=== PATIENT | female | born 1950 | race Caucasian/White ===

== ENCOUNTER → 2017-08-28 | Outpatient (CLI) | payer MEDICARE, BC | LOC: OD 18:02 | DX: N89.9 Noninflammatory disorder of vagina, unspecified (principal); Z12.12 Encounter for screening for malignant neoplasm of rectum | CPT/HCPCS: 88142 ==

== ENCOUNTER 2017-09-13 16:43 | Emergency (ER) | payer MEDICARE, BC ==
[2017-09-13] MEDS ORDERED: OXYCODONE-ACETAMINOPHEN 5-325 MG TABLET PO ONE (18:32)
--- NOTE | 2017-09-13 18:51 | RADIOLOGY REPORT (SQ) ---
EXAM DESCRIPTION: WRIST LEFT 3 VIEWS COMPLETED DATE/TIME: 09/13/2017 6:40 pm REASON FOR STUDY: fall left wrist deformity COMPARISON: None. NUMBER OF VIEWS: Three views. TECHNIQUE: AP, lateral, and oblique radiographic images acquired of the left wrist. LIMITATIONS: None. FINDINGS: MINERALIZATION: Normal. BONES: Comminuted fracture of the distal radius with dorsal angulation. SOFT TISSUES: No soft tissue swelling. No foreign body. OTHER: No other significant finding. IMPRESSION: COMMINUTED FRACTURE OF THE DISTAL RADIUS. TECHNICAL DOCUMENTATION: JOB ID: [id number] [employer]- All Rights Reserved
[2017-09-13] MEDS ORDERED: LIDOCAINE 2% INJ-PF (20 MG/ML) 10 ML AMPUL INFIL ONE (19:22)
[2017-09-13] MEDS ORDERED: LIDOCAINE 1% INJ-PF (10 MG/ML) 30 ML SDV ONE (20:29)
--- NOTE | 2017-09-13 21:38 | ER Document Report ---
ED Extremity Problem, Upper - General Chief Complaint: Arm Injury Stated Complaint: LEFT WRIST INJURY Time Seen by Provider: 09/13/17 18:31 Mode of Arrival: Ambulatory Information source: Patient Notes: Patient is a 67-year-old female comes emergency room after having a trip and fall at a local gym. She went to picker tender her granddaughter and was walking on the soft spongy mats as she was going across the floor she does not know whether she tripped or stepped off the mat and missed the start of the next mat but she fell straight forward on an outstretched left hand and is in here today because she has deformity to the left wrist. She denies any other injuries at this time. TRAVEL OUTSIDE OF THE [place] IN LAST 30 DAYS: No - HPI Patient complains to provider of: Injury, Pain, Swelling, Wrist Onset: Just prior to arrival Recent injury: Yes Where: Other - gym Quality of pain: Achy, Sharp, Throbbing Severity of pain: Still present Pain Level: 4 Context: Fall Associated symptoms: Nausea Exacerbated by: Movement Relieved by: Rest, Positioning Similar symptoms previously: No Recently seen / treated by doctor: No - Related Data Allergies/Adverse Reactions: Sulfa (Sulfonamide Antibiotics) Allergy (Verified 09/13/17 16:46) Past Medical History - General Information source: Patient, Relative - Social History Smoking Status: Never Smoker Chew tobacco use (# tins/day): No Frequency of alcohol use: Rare Drug Abuse: None Lives with: Spouse/Significant other Family History: Reviewed & Not Pertinent Patient has suicidal ideation: No Patient has homicidal ideation: No - Past Medical History Cardiac Medical History: Reports: Hx Hypertension Renal/ Medical History: Denies: Hx Peritoneal Dialysis Past Surgical History: Reports: Hx Appendectomy, Hx Cholecystectomy, Hx Tonsillectomy. Denies: Hx Orthopedic Surgery - Immunizations Hx Diphtheria, Pertussis, Tetanus Vaccination: Yes Review of Systems - Review of Systems Constitutional: No symptoms reported EENT: No symptoms reported Cardiovascular: No symptoms reported Respiratory: No symptoms reported Gastrointestinal: No symptoms reported Genitourinary: No symptoms reported Female Genitourinary: No symptoms reported Musculoskeletal: Joint pain, Joint swelling Skin: No symptoms reported Hematologic/Lymphatic: No symptoms reported Neurological/Psychological: No symptoms reported -: Yes All other systems reviewed and negative Physical Exam - Vital signs Vitals: Temp Pulse Resp BP Pulse Ox 97.8 F 59 L 16 145/70 H 100 09/13/17 16:53 09/13/17 16:53 09/13/17 16:53 09/13/17 16:53 09/13/17 16:53 Interpretation: Hypertensive - General General appearance: Alert, Other - Uncomfortable - Respiratory Respiratory status: No respiratory distress Chest status: Nontender Breath sounds: Normal. No: Decreased air movement, Nonproductive cough, Productive cough, Rales, Rhonchi, Stridor, Wheezing, Other - Cardiovascular Rhythm: Regular, Bradycardia Heart sounds: Normal auscultation Murmur: No - Extremities General upper extremity: Tender, Edema, Normal color. No: Normal inspection, Nontender, Normal ROM, Normal strength, Normal temperature, Other General lower extremity: Normal inspection, Normal ROM Wrist: Tender, Deformity, Ecchymosis, Limited ROM, Other - Examination of the left wrist shows a deformity which appears to be displaced dorsally. There is good pulses in both the ulna and radial pulses and good cap refill in the nail beds of the left hand. 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 No sign of compartment syndrome. - Neurological Neuro grossly intact: Yes Cognition: Normal Orientation: AAOx4 [place] Coma Scale Eye Opening: Spontaneous [place] Coma Scale Verbal: Oriented [place] Coma Scale Motor: Obeys Commands [place] Coma Scale Total: 15 Speech: Normal Course - Vital Signs Vital signs: Temp Pulse Resp BP Pulse Ox 97.5 F 61 16 132/74 H 96 09/13/17 21:46 09/13/17 21:46 09/13/17 16:53 09/13/17 21:46 09/13/17 21:46 - Diagnostic Test Radiology reviewed: Reports reviewed - Comminuted fx of wrist. Post reduction is improved position - Transfer of Care Notes: 09/17/17 12:[address] Cook look at Xrays and he felt that patient might benefit from a reduction. He advised a hematoma block. Procedures - Immobilization Left Posterior Wrist Time completed: 21:34 Pre-Proc Neuro Vasc Exam: Normal Immobilizer type: Long arm posterior, Short Arm Posterior Performed by: PCT Post-Proc Neuro Vasc Exam: Normal Alignment checked and good: Yes - Joint Reduction/Fracture Care Left Wrist Consent obtained: Yes Conscious sedation: No Pre-procedure NV exam: Yes Fracture: Closed Post-procedure NV exam: Yes Reduction attempts: 1 Complications: No Notes: 09/17/17 12:13 Patient had a wrist fracture and I used a hematoma block to numb the area. I used 10ml of 1% lidocaine without epi. I went in dorsally drawing back on the plunger while using an 18 gauge needle until I got a flash of blood. I then pushed in the full 10mls and then withdrew. I waited about 5 minutes then with the aid of another APC I manipulated the disgtal wrist while the other APC pulled traction. I felt several bones move and once the deformity disappeared we applied a splint of orthoglass and did post reduction Xray which showed improved position. I for got to add that I did use sterile technique to clean the area using both alcohol and betadine before inserting the needle for the hematoma block. Discharge - Discharge Clinical Impression: Fracture of left wrist Qualifiers: Encounter type: initial encounter Fracture type: closed Qualified Code(s): S62.102A - Fracture of unspecified carpal bone, left wrist, initial encounter for closed fracture Condition: Good Disposition: HOME, SELF-CARE Instructions: Radial Head Fracture ([facility]) Additional Instructions: Home and rest. Medications prescribed. Leave the splint on until you seen the orthopedist. I have given you the name the orthopedic group referral and information aide today and you may contact her office tomorrow to see if they can accommodate you. You may ice down through this splint by placing in a plastic bag over top of it and ice bag on top and below. Use the sling at all times. Should you have any problems or concerns return to ER for recheck. Primarily you looking for circulation in the distal tips of your fingernails if you pinch the nailbed it turns white when you release it it turns red that is good blood flow if you turn loose and it takes a while to turn red you need to loosen up the splint. Prescriptions: Oxycodone HCl/Acetaminophen [Percocet 10-325 Mg Tablet] 1 each PO Q6 #20 tablet Referrals: PRESTON SCHNEIDER MD [Primary Care Provider] - Follow up as needed ZAIRA MCDUFFIE MD [ACTIVE STAFF] - Follow up as needed
[2017-09-13 21:47] VITALS: BP 132/74
--- NOTE | 2017-09-13 22:17 | RADIOLOGY REPORT (SQ) ---
EXAM DESCRIPTION: WRIST LEFT 2 VIEWS COMPLETED DATE/TIME: 09/13/2017 9:06 pm REASON FOR STUDY: post reduction COMPARISON: 09/13/2017. NUMBER OF VIEWS: Two views. TECHNIQUE: AP and lateral radiographic images acquired of the left wrist. LIMITATIONS: None. FINDINGS: MINERALIZATION: Normal. BONES: Improved position of the fracture of the distal radius following closed reduction. Cast mater ial present. SOFT TISSUES: No soft tissue swelling. No foreign body. OTHER: No other significant finding. IMPRESSION: IMPROVED POSITION FOLLOWING CLOSED REDUCTION. TECHNICAL DOCUMENTATION: JOB ID: [id number] [employer]- All Rights Reserved
== END 2017-09-13 21:45 | disposition home or self-care (01) ==
LOC: ER 16:43
PROC: 0PSNXZZ Reposition Left Carpal, External Approach (ICD-10-PCS; principal; 2017-09-13)
DX: S62.102A Fracture of unspecified carpal bone, left wrist, initial encounter for closed fracture (principal); M25.531 Pain in right wrist; W01.0XXA Fall on same level from slipping, tripping and stumbling without subsequent striking against object, initial encounter
CPT/HCPCS: 99283; 73100; 73110; 25635; A9270

== ENCOUNTER 2018-08-15 05:20 | Day surgery (SDC) | payer MEDICARE, BC ==
[2018-08-08 11:49] LABS: HEMOGLOBIN 14.1 g/dL (12.0-15.5); MEAN CORPUSCULAR HEMOGLOBIN 32.1 pg (27.0-33.4); MEAN CORPUSCULAR HGB CONC 34.5 g/dL (32.0-36.0); MEAN CORPUSCULAR VOLUME 93 fl (80-97); PLATELET COUNT 234 10^3/uL (150-450); RED CELL DISTRIBUTION WIDTH 13.3 % (11.5-14.0); WHITE BLOOD COUNT 5.6 10^3/uL (4.0-10.5)
[2018-08-08 11:59] LABS: APPEARANCE,URINE SLIGHTLY-CLOUDY; BILIRUBIN,URINE NEGATIVE (NEGATIVE); COLOR,URINE YELLOW; GLUCOSE, URINE NEGATIVE (NEGATIVE); KETONES,URINE NEGATIVE (NEGATIVE); LEUKOCYTE ESTERASE,URINE MODERATE (NEGATIVE); NITRITE,URINE NEGATIVE (NEGATIVE); PROTEIN,URINE NEGATIVE (NEGATIVE); URINE SPECIFIC GRAVITY 1.024; UROBILINOGEN,URINE NEGATIVE mg/dL (<2.0)
[2018-08-08 12:12] LABS: ANION GAP 14 (5-19); BLOOD UREA NITROGEN 15 mg/dL (7-20); CALCIUM 10.1 mg/dL (8.4-10.2); CARBON DIOXIDE 26 mmol/L (22-30); CHLORIDE 105 mmol/L (98-107); GLUCOSE 97 mg/dL (75-110); POTASSIUM 4.3 mmol/L (3.6-5.0); SODIUM 144.7 mmol/L (137-145)
--- NOTE | 2018-08-08 13:05 | RADIOLOGY REPORT (SQ) ---
EXAM DESCRIPTION: CHEST PA/LATERAL COMPLETED DATE/TIME: 08/08/2018 12:23 pm REASON FOR STUDY: PRE-OP COMPARISON: August 2014 EXAM PARAMETERS: NUMBER OF VIEWS: two views TECHNIQUE: Digital Frontal and Lateral radiographic views of the chest acquired. RADIATION DOSE: NA LIMITATIONS: none FINDINGS: LUNGS AND PLEURA: No opacities, masses or pneumothorax. No pleural effusion. MEDIASTINUM AND HILAR STRUCTURES: No masses or contour abnormalities. HEART AND VASCULAR STRUCTURES: Heart normal size. No evidence for failure. BONES: No acute findings. HARDWARE: None in the chest. OTHER: No other significant finding. IMPRESSION: NO SIGNIFICANT RADIOGRAPHIC FINDING IN THE CHEST. TECHNICAL DOCUMENTATION: JOB ID: [id number] [employer]- All Rights Reserved Reading location - IP/workstation name: [email or web address]
--- NOTE | 2018-08-08 13:23 | EKG REPORT ---
SEVERITY:- ABNORMAL ECG - SINUS RHYTHM NONSPECIFIC T ABNORMALITIES, ANTERIOR LEADS : Confirmed by: Ezequiel Berumen MD 08-Aug-2018 13:22:06
[~2018-08-15 05:20] MED LIST: CEFAZOLIN 2 GM/D5W RTU 2 GM/50 ML RTUPB IV ONE; CEFAZOLIN 2 GM/D5W RTU 2 GM/50 ML RTUPB IV PRN
[2018-08-15] MEDS ORDERED: BUPIVACAINE HCL 0.5 % INJ/PF 30 ML SDV ONE (06:50)
[2018-08-15] MEDS ORDERED: LIDOCAINE 1%/EPINEPHRINE INJ 20 ML VIAL ONE (06:50)
[2018-08-15] MEDS ORDERED: FENTANYL CITRATE INJ/PF 100 MCG/2 ML AMPUL ONE (06:53)
[2018-08-15] MEDS ORDERED: MIDAZOLAM 2 MG/2 ML INJ ONE (06:54)
[2018-08-15] MEDS ORDERED: PROPOFOL INJ 200 MG/20 ML VIAL IV ONE (06:54)
[2018-08-15] MEDS ORDERED: MORPHINE SULFATE 10 MG/ML INJ IV PRN (07:45)
[2018-08-15] MEDS ORDERED: FENTANYL CITRATE INJ/PF 100 MCG/2 ML AMPUL IV PRN ×3 (07:45)
[2018-08-15] MEDS ORDERED: DIPHENHYDRAMINE HCL 50 MG/ML VIAL IV PRN (07:45)
[2018-08-15] MEDS ORDERED: OXYCODONE-ACETAMINOPHEN 5-325 MG TABLET PO PRN (07:45)
[2018-08-15] MEDS ORDERED: PROMETHAZINE HCL INJ 25 MG/1 ML VIAL IV PRN ×2 (07:45)
[2018-08-15] MEDS ORDERED: MEPERIDINE HCL/PF INJ 25 MG/1 ML DISP.SYRIN IV PRN (07:45)
--- NOTE | 2018-08-15 08:02 | Discharge Summary ---
Discharge Summary (SDC) - Discharge Final Diagnosis: Left lateral meniscal tear Date of Surgery: 08/15/18 Discharge Date: 08/15/18 Condition: Good Forms: ASU Anesthesia D/C Instruction, Discharge POC-Surgical Service Treatment or Instructions: Removed compressive wrap on Monday. Underlying OpSite can remain in place until the patient returns to the office Prescriptions: Oxycodone HCl/Acetaminophen [Percocet 5-325 mg Tablet] 1 tab PO Q6 PRN #25 tab PRN Reason: Referrals: ZEE HOUSTON MD [ACTIVE STAFF] - 08/29/18 1:15 pm Discharge Diet: As Tolerated, Regular Respiratory Treatments at Home: Deep Breathing/Coughing Discharge Activity: Activity As Tolerated, Keep Legs Elevated, No tub bath Home Care Assistance: None Needed Report the Following to Your Physician Immediately: Increase in Pain, Fever over 101 Degrees, Unusual Bleeding, Redness, Swelling, Warmth, Numbness, Tingling Sensation, IV Site Infection Signs
--- NOTE | 2018-08-15 08:04 | Operative Report ---
Operative Report DATE OF SURGERY: 08/15/18 PREOPERATIVE DIAGNOSIS: Left lateral meniscal tear POSTOPERATIVE DIAGNOSIS: Left lateral meniscal tear. 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 Intact ACL. Left medial meniscal tear. Grade 1 chondral malacia the medial compartment. 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 The knee is insufflated with accommodation Marcaine, Xylocaine, and epinephrine. Subsequent medial and lateral infrapatellar portals are created for the introduction of arthroscope and debridements mentation. Joint is examined in systematic fashion findings as above. A partial medial meniscectomy was performed from approximately 10:00 to 12:00 on the face of the dial. Similarly a partial lateral meniscectomy was performed from approximately 6:00 to 1:00 on the face of the dial. This point the joint is again examined in systematic fashion. There is a cystic structure in the medial aspect of the notch which is debrided with a mechanical shaver. No loose bodies are identified. The instrumentation was removed. The portals reapproximation of the nylon. A sterile compressive dressing was applied and the patient's return to PACU in satisfactory condition.
[2018-08-15] MEDS: OXYCODONE-ACETAMINOPHEN 5-325 MG TABLET ONE ×2 (08:37→08:50)
[2018-08-15 09:52] VITALS: BP 119/74
== END 2018-08-15 09:50 | disposition home or self-care (01) ==
LOC: OROUT 05:20
PROVIDERS: ATTEND Orthopaedic Surgery
DX: M23.201 Derangement of unspecified lateral meniscus due to old tear or injury, left knee (principal); M23.204 Derangement of unspecified medial meniscus due to old tear or injury, left knee; M22.42 Chondromalacia patellae, left knee; I10 Essential (primary) hypertension; Z79.899 Other long term (current) drug therapy; Z79.891 Long term (current) use of opiate analgesic; Z88.2 Allergy status to sulfonamides; Z01.818 Encounter for other preprocedural examination
CPT/HCPCS: 93005; 36415; 85027; 80048; 81001; 71046; 93010; 29880; J2250; J3490 ×2; J3010; A9270; J2704; J0690; 1400